=== PATIENT | male | born 1985 | race Caucasian/White ===

== ENCOUNTER 2016-12-18 10:58 | Emergency (ER) | payer MEDICAID ==
[~2016-12-18] VITALS: Wt 84.0 kg
[~2016-12-18 10:58] MED LIST: CLIN-73 PO
[2016-12-18] MEDS ORDERED: predniSONE 20 MG TAB PO ONE (12:00)
[2016-12-18] MEDS ORDERED: AZIT250T94 PO (12:01)
[2016-12-18] MEDS ORDERED: PRED20TA PO (12:01)
[2016-12-18] MEDS ORDERED: CETI10CA PO (12:01)
--- NOTE | 2016-12-18 12:06 | ERD ---
ER Documentation Chief Complaint Date/Time DATE: 12/18/16 TIME: 12:04 Chief Complaint bilateral eye itching and headache since this morning, cough congestion HPI This 31-year-old male complains of nasal congestion and cough worsening the last 2 days with productive green mucus. He has a history of wheezing and watery eyes for the last week as well. They have had a tactile fever yesterday. Denies any chest pain, vomiting, abdominal pain, neck stiffness, rashes. ROS All systems reviewed and are negative except as per history of present illness. Medications Home Meds Active Scripts Azithromycin* (Zithromax*) 250 Mg Tablet, 250 MG PO .ZPACK DIRECTED, #6 TAB TAKE 500 MG (2 TABS) THE FIRST DAY THEN 250 MG (1 TAB) DAYS 2-5 Prov:MURIEL SEPULVEDA MD 12/18/16 Cetirizine Hcl* (Zyrtec*) 10 Mg Capsule, 10 MG PO DAILY, #15 TAB.CHEW Prov:MURIEL SEPULVEDA MD 12/18/16 Prednisone* (Prednisone*) 20 Mg Tab, 40 MG PO DAILY for 4 Days, TAB Prov:MURIEL SEPULVEDA MD 12/18/16 Clindamycin Hcl* (Clindamycin Hcl*) 300 Mg Capsule, 300 MG PO TID for 10 Days, CAP Prov:CHANDLER MCGILL MD 08/30/15 Allergies Allergies: Coded Allergies: No Known Allergy (Unverified , 08/30/15) PMhx/Soc History of Surgery: No Anesthesia Reaction: No Hx Neurological Disorder: No Hx Respiratory Disorders: No Hx Cardiac Disorders: No Hx Psychiatric Problems: No Hx Miscellaneous Medical Probl: No Hx Alcohol Use: Yes Hx Substance Use: No Hx Tobacco Use: No Smoking Status: Never smoker Physical Exam Vitals Vital Signs Date Time Temp Pulse Resp B/P Pulse Ox O2 Delivery O2 Flow Rate FiO2 12/18/16 11:00 98.4 85 21 150/81 97 Physical Exam Const: [] Alert, [id number]. Head: Atraumatic Eyes: Normal Conjunctiva. Slight watery eyes. No periorbital swelling or proptosis. Eyes are Bunny per ENT: Normal External Ears, Nose and Mouth. 3+ nasal congestion and postnasal drip. Neck: Full range of motion..~ No meningismus. Resp: Clear to auscultation bilaterally Cardio: Regular rate and rhythm, no murmurs Abd: Soft, non tender, non distended. Normal bowel sounds Skin: No petechiae or rashes Back: No midline or flank tenderness Ext: No cyanosis, or edema Neur: Awake and alert Psych: Normal Mood and Affect Results 24 hrs Current Medications Medications (Trade) Dose Ordered Sig/Blanca Route PRN Reason Start Time Stop Time Status Last Admin Dose Admin Prednisone (Prednisone) 40 mg ONCE ONCE PO 12/18/16 12:00 12/18/16 12:01 UNV Procedures/MDM Patient presents with signs of allergic rhinitis with URI symptoms well. He may have secondary sinusitis will be treated for this. He will be treated with Zyrtec, short course of prednisone and Zithromax. Patient is advised to follow- up his primary doctor this week return to the ER for new or worsening symptoms. The patient was stable with no new complaints during the ER course. Clinically , there is no current evidence to suggest meningitis, sepsis, acute abdomen, pneumonia, acute coronary syndrome, pulmonary embolism, or any other emergent condition appearing to require further evaluation or hospitalization. The patient should certainly return for any new or worsening symptoms per the aftercare instructions. They should otherwise follow-up with her primary care doctor for reevaluation this week. Departure Diagnosis: Primary Impression: Allergic rhinitis Allergic rhinitis seasonality: unspecified seasonality Allergic rhinitis trigger: unspecified Qualified Code: J30.9 - Allergic rhinitis, unspecified allergic rhinitis trigger, unspecified rhinitis seasonality Condition: Stable Patient Instructions: Allergic Rhinitis, Sinusitis, Abx Tx Additional Instructions: Recheck for new or worsening symptoms with primary care doctor. Cheque otro vez con mosley doctor primario en el proximo persaud or regresa para mas o nueva simptomas. MURIEL SEPULVEDA MD Dec 18, 2016 12:06
== END 2016-12-18 12:43 | disposition home or self-care (01) ==
LOC: FTE 10:58
DX: J30.9 Allergic rhinitis, unspecified (principal)
CPT/HCPCS: J7512; Z7502; 99284

== ENCOUNTER 2017-09-01 14:41 | Emergency (ER) | payer MEDICAID ==
[~2017-09-01] VITALS: Ht 160 cm; Wt 89.0 kg
[~2017-09-01 14:41] MED LIST changes: +AZIT250T94 PO; +CETI10CA PO; +PRED20TA PO
[2017-09-01 14:50] VITALS: Ht 160 cm; Wt 89.0 kg
[2017-09-01] MEDS ORDERED: AMOX1TAB10 PO (15:14)
[2017-09-01] MEDS ORDERED: FLUT9.9S NASAL (15:14)
[2017-09-01] MEDS ORDERED: FEXO180T61 PO (15:15)
--- NOTE | 2017-09-01 15:26 | ERD ---
ER Documentation Chief Complaint Chief Complaint NASAL CONGESTION, ST, LANDEROS X 1 WEEK HPI This is a 32-year-old male presents to the ER with multiple complaints. Patient states that he has chronic runny nose and nasal congestion, over the last week he has had increased facial pain with purulent discharge from his nose. He also has a sore throat and headache. He denies a cough. He denies any chest pain or shortness of breath. She denies any head trauma. He denies any loss of consciousness. He denies any dizziness. ROS 12 point review of systems was done, all negative except per HPI. Medications Home Meds Active Scripts Fexofenadine Hcl* (Charisse*) 180 Mg Tablet, 180 MG PO DAILY, #30 TAB Prov:RAULITO PINEDA 09/01/17 Fluticasone Propionate (Flonase Allergy Relief) 9.9 Ml Hubertus.susp, 1 SPRAY NASAL DAILY, #1 BOTTLE TO EACH NOSTRIL Prov:RAULITO PINEDA 09/01/17 Amoxicillin/Potassium Clav (Amox-Clav 875-125 mg Tablet) 875-125 mg Tab, 1 TAB PO BID for 7 Days, #14 TAB Prov:RAULITO PINEDA 09/01/17 Azithromycin* (Zithromax*) 250 Mg Tablet, 250 MG PO .ZPACK DIRECTED, #6 TAB TAKE 500 MG (2 TABS) THE FIRST DAY THEN 250 MG (1 TAB) DAYS 2-5 Prov:MURIEL SEPULVEDA MD 12/18/16 Cetirizine Hcl* (Zyrtec*) 10 Mg Capsule, 10 MG PO DAILY, #15 TAB.CHEW Prov:MURIEL SEPULVEDA MD 12/18/16 Prednisone* (Prednisone*) 20 Mg Tab, 40 MG PO DAILY for 4 Days, TAB Prov:MURIEL SEPULVEDA MD 12/18/16 Clindamycin Hcl* (Clindamycin Hcl*) 300 Mg Capsule, 300 MG PO TID for 10 Days, CAP Prov:CHANDLER MCGILL MD 08/30/15 Allergies Allergies: Coded Allergies: No Known Allergy (Unverified , 08/30/15) PMhx/Soc History of Surgery: No Anesthesia Reaction: No Hx Neurological Disorder: No Hx Respiratory Disorders: No Hx Cardiac Disorders: No Hx Psychiatric Problems: No Hx Miscellaneous Medical Probl: No Hx Alcohol Use: Yes Hx Substance Use: No Hx Tobacco Use: No Physical Exam Vitals Vital Signs Date Time Temp Pulse Resp B/P Pulse Ox O2 Delivery O2 Flow Rate FiO2 09/01/17 14:50 98.1 78 18 140/82 99 Physical Exam GENERAL: The patient is well developed and appropriate for usual state of health , in no apparent distress. HEENT: Atraumatic. Conjunctivae are pink. Pupils equal, round, and reactive to light. Extraocular muscles are grossly intact. Bilateral tympanic membranes are clear with no evidence of erythema, bulging or perforation. +maxillary sinus tenderness NECK: C-spine is soft and supple. There is no cervical lymphadenopathy. CHEST: Clear to auscultation bilaterally. There are no rales, wheezes or rhonchi. HEART: Regular rate and rhythm. No murmurs, clicks, rubs or gallops. EXTREMITIES: Equal pulses bilaterally. There is no peripheral clubbing, cyanosis or edema. No focal swelling or erythema. Full range of motion. Grossly neurovascularly intact. NEURO: Alert and oriented. Cranial nerves II through XII are intact. Motor strength in all 4 extremities with 5/5 strength. Sensation grossly intact. Normal speech and gait. Negative Rhomberg. +2 DTRs. SKIN: There is no apparent rash or petechia. The skin is warm and dry. Procedures/MDM Differential Diagnosis includes but is not limited to; tension headache, migraine headache, cluster headache, sinus headache, nonspecific febrile headache, trigeminal neurologia, subdural hematoma, subarachnoid bleeding, meningitis, encephalitis. Patient is neurologically intact with no focal neurological deficits. Patient likely has sinusitis, he does have tenderness over his maxillary sinus. His headache is likely related to sinus pressure. Patient does have chronically runny nose and nasal congestion likely has allergic rhinitis. Patient will be sent with Augmentin, informed the group. Patient is afebrile and extremely well-appearing, I doubt meningitis or sepsis. Patient needs to follow-up with his primary care doctor within 1-2 days return to ER sooner if symptoms worsen. My medical decision making shared with the patient he understands and agrees with plan. Departure Diagnosis: Primary Impression: Allergic rhinitis Additional Impression: Sinusitis Condition: Stable Patient Instructions: Sinusitis, Abx Tx Additional Instructions: Llame al doctor STEVE y shay sylvia MANOJ PARA DENTRO DE 1-2 FRAZIER.Dgale a la secretaria que nosotros le instruimos hacer esta manoj.Avise o llame si mosley condicin se empeora antes de la manoj. Regresa aqui si peor o no mejor. RAULITO PINEDA Sep 01, 2017 15:26
== END 2017-09-01 15:22 | disposition home or self-care (01) ==
LOC: FTE 14:41
DX: J30.9 Allergic rhinitis, unspecified (principal); J32.9 Chronic sinusitis, unspecified
CPT/HCPCS: 99283

== ENCOUNTER 2018-04-16 21:00 | Emergency (ER) | END 2018-04-17 02:22 | disposition left against medical advice (07) ==

== ENCOUNTER 2018-04-17 16:59 | Emergency (ER) | END 2018-04-17 19:50 | disposition home or self-care (01) ==